=== PATIENT | male | born 1985 | race Two or more races ===

== ENCOUNTER 2019-03-17 10:59 | Inpatient (IN) | payer SELFPAY ==
[2019-03-17 11:23] VITALS: BMI 22.9
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
[2019-03-17] MEDS ORDERED: IBUPROFEN 400 MG TABLET (FP) PO PRN (12:56)
[2019-03-17] MEDS ORDERED: MAGNESIUM CITRATE 300 ML BOTTLE PO PRN (12:56)
[2019-03-17] MEDS ORDERED: hydrOXYzine PAMOATE 25 MG CAPSULE (FP) PO PRN ×2 (12:56)
[2019-03-17] MEDS ORDERED: METHOCARBAMOL 500 MG TABLET PO PRN (12:56)
[2019-03-17] MEDS ORDERED: MELATONIN 5 MG TABLETS PO PRN (12:56)
[2019-03-17] MEDS ORDERED: BISMUTH SUBSALICYLATE 262 MG/15 ML BTL PO PRN (12:56)
[2019-03-17] MEDS ORDERED: MENTHOL/PHENOL 1 EACH UD MM PRN (12:56)
[2019-03-17] MEDS ORDERED: ACETAMINOPHEN 325 MG TABLET (FP) PO PRN ×2 (12:56)
[2019-03-17] MEDS ORDERED: cloNIDine HCL 0.1 MG TABLET PO PRN (12:56)
[2019-03-17] MEDS ORDERED: MAGNESIUM HYDROX 2400MG/30ML ORAL SUSPENSION 30 ML CUP PO PRN (12:56)
[2019-03-17] MEDS ORDERED: MAG HYDROX/AL HYDROX/SIMETH 30 ML UNIT-DOSE CUP PO PRN (12:56)
[2019-03-17] MEDS ORDERED: METHADONE HCL 10 MG TABLET (FOR DETOX USE ONLY) PO ONE (14:05)
[2019-03-17 14:15] LABS: HEMOGLOBIN 11.6 GM/dL (11.7-16.9); MCH 33.1 pg (25.7-33.7); MCHC 33.3 g/dl (32.0-35.9); MEAN CELL VOLUME 99.5 fl (80-96); MEAN PLT VOLUME 10.4 fl (7.5-11.1); PLATELET COUNT 101 K/MM3 (134-434); RBC 3.51 M/mm3 (4.00-5.60); RDW 13.2 % (11.9-15.9); WHITE BLOOD COUNT 6.2 K/mm3 (4.0-10.0)
[2019-03-17 14:26] LABS: ALBUMIN 3.8 g/dl (3.4-5.0); BILIRUBIN,TOTAL 1.1 mg/dL (0.2-1); BLOOD UREA NITROGEN 9.6 mg/dL (7-18); CALCIUM 9.2 mg/dL (8.5-10.1); POTASSIUM 4.6 mmol/L (3.5-5.1); TOT PROT 7.1 g/dl (6.4-8.2)
[2019-03-17] MEDS: diazePAM 5 MG TABLET PO PRN (18:40)
[2019-03-17] MEDS: THIAMINE HCL 100 MG TABLET (FP) PO SCH (22:51)
[2019-03-18] MEDS ORDERED: METHADONE HCL 5 MG TABLET (FOR DETOX USE ONLY) ONE (09:05)
[2019-03-18] MEDS ORDERED: METHADONE HCL 10 MG TABLET (FOR DETOX USE ONLY) ONE (09:06)
[2019-03-18] MEDS: NICOTINE 14 MG/24 HOURS TOPICAL PATCH TD SCH (09:52)
[2019-03-18] MEDS: PRENATAL VITAMINS W/ FOLIC ACID TABLET (FP) PO SCH (09:52)
[2019-03-18] MEDS ORDERED: METHADONE (DETOX) 20 MG, METHADONE (DETOX) 5 MG PO ONE (10:00)
--- NOTE | 2019-03-18 10:10 | PN ---
[facility] COWS - Scale Resting Pulse: 0= [place] 80 or Below Sweatin= Chills/Flushing Restless Observation: 1= Difficult to Sit Still Pupil Size: 0= Normal to Room Light Bone or Joint Aches: 1= Mild Discomfort Runny Nose/ Eye Tearin= Runny Nose/Eyes GI Upset > 30mins: 0= None Tremor Observation of Outstretched Hands: 1= Tremor [place], Not Seen Yawning Observation: 1= 1-2x During Session Anxiety or Irritability: 2=Irritable/Anxious Goose Flesh Skin: 0=Smooth Skin COWS Score: 9 BHS Progress Note (SOAP) Subjective: sweats shakes interrupted sleep body aches Objective: 03/18/19 10:13 Vital Signs Temperature 98.1 F 03/18/19 09:48 Pulse Rate 64 03/18/19 09:48 Respiratory Rate 18 03/18/19 09:48 Blood Pressure 124/81 03/18/19 09:48 O2 Sat by Pulse Oximetry (%) Laboratory Tests 03/17/19 03/17/19 13:00 13:00 WBC 6.2 RBC 3.51 L Hgb 11.6 L Hct 35.0 L MCV 99.5 H MCH 33.1 MCHC 33.3 RDW 13.2 Plt Count 101 L D MPV 10.4 Sodium 140 Potassium 4.6 Chloride 102 Carbon Dioxide 35 H Anion Gap 3 L BUN 9.6 Creatinine 1.0 Est GFR (CKD-EPI)AfAm 111.73 Est GFR (CKD-EPI)NonAf 96.40 Random Glucose 100 Calcium 9.2 Total Bilirubin 1.1 H AST 76 H ALT 100 H Alkaline Phosphatase 63 Total Protein 7.1 Albumin 3.8 aaox3 ambulating no acute distress Assessment: 03/18/19 10:19 withdrawal sx Plan: continue detox increase fluids
[2019-03-18] MEDS ORDERED: FLU VACCINE QUAD 60 MCG/0.5 ML (MDV 19-20) IM ONE (12:00)
[2019-03-18] MEDS: diazePAM 5 MG TABLET PO PRN ×3 (14:22→22:09)
[2019-03-18] MEDS: THIAMINE HCL 100 MG TABLET (FP) PO SCH (22:09)
[2019-03-19] MEDS: diazePAM 5 MG TABLET PO PRN (05:37)
[2019-03-19 07:19] VITALS: TEMP 97.7
[2019-03-19 09:42] VITALS: BP 137/85; PULSE 80
[2019-03-19] MEDS ORDERED: METHADONE HCL 10 MG TABLET (FOR DETOX USE ONLY) PO ONE (10:00)
[2019-03-19] MEDS: NICOTINE 14 MG/24 HOURS TOPICAL PATCH TD SCH (10:27)
[2019-03-19] MEDS: PRENATAL VITAMINS W/ FOLIC ACID TABLET (FP) PO SCH (10:28)
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
--- NOTE | 2019-03-19 11:17 | DS ---
[facility] Detox Discharge Summary Admission Date: 03/17/19 - History Present History: Alcohol Dependence, Cannabis Dependence, Opioid Dependence, Sedative Dependence - Physical Exam Results Vital Signs: Vital Signs Temperature 97.7 F 03/19/19 09:41 Pulse Rate 80 03/19/19 09:41 Respiratory Rate 18 03/19/19 09:41 Blood Pressure 137/85 03/19/19 09:41 O2 Sat by Pulse Oximetry (%) Pertinent Admission Physical Exam Findings: Vital Signs Temperature 97.7 F 03/19/19 09:41 Pulse Rate 80 03/19/19 09:41 Respiratory Rate 18 03/19/19 09:41 Blood Pressure 137/85 03/19/19 09:41 O2 Sat by Pulse Oximetry (%) Laboratory Tests 03/17/19 03/17/19 03/17/19 13:00 13:00 13:00 WBC 6.2 RBC 3.51 L Hgb 11.6 L Hct 35.0 L MCV 99.5 H MCH 33.1 MCHC 33.3 RDW 13.2 Plt Count 101 L D MPV 10.4 Sodium 140 Potassium 4.6 Chloride 102 Carbon Dioxide 35 H Anion Gap 3 L BUN 9.6 Creatinine 1.0 Est GFR (CKD-EPI)AfAm 111.73 Est GFR (CKD-EPI)NonAf 96.40 Random Glucose 100 Calcium 9.2 Total Bilirubin 1.1 H AST 76 H ALT 100 H Alkaline Phosphatase 63 Total Protein 7.1 Albumin 3.8 RPR Titer Nonreactive pt chose to sign out AMA. - Treatment Patient has Accepted a Rehab Referral to: pt delined all referral - Diagnosis (1) Cannabis dependence Current Visit: Yes Status: Chronic (2) Depression Current Visit: Yes Status: Chronic Qualifiers: Depression Type: unspecified Qualified Code(s): F32.9 - Major depressive disorder, single episode, unspecified (3) Nicotine dependence Current Visit: Yes Status: Chronic Qualifiers: Nicotine product type: cigarettes Substance use status: uncomplicated Qualified Code(s): F17.210 - Nicotine dependence, cigarettes, uncomplicated (4) Opioid dependence Current Visit: Yes Status: Chronic Qualifiers: Substance use status: uncomplicated Qualified Code(s): F11.20 - Opioid dependence, uncomplicated (5) AIDS Current Visit: No Status: Acute (6) Alcohol dependence Current Visit: Yes Status: Chronic Qualifiers: Substance use status: uncomplicated Qualified Code(s): F10.20 - Alcohol dependence, uncomplicated (7) Anxiety Current Visit: No Status: Acute (8) Benzodiazepine dependence Current Visit: No Status: Acute (9) Cocaine dependence Current Visit: No Status: Acute Qualifiers: Substance use status: uncomplicated Qualified Code(s): F14.20 - Cocaine dependence, uncomplicated (10) Drug-induced mood disorder Current Visit: No Status: Acute (11) Hepatitis C Current Visit: No Status: Chronic Qualifiers: Viral hepatitis chronicity: unspecified Hepatic coma status: without hepatic coma Qualified Code(s): B19.20 - Unspecified viral hepatitis C without hepatic coma - AMA Did Patient Leave Against Medical Advice: Yes
[2019-03-20] MEDS ORDERED: METHADONE (DETOX) 10 MG, METHADONE (DETOX) 5 MG PO ONE (10:00)
[2019-03-21] MEDS ORDERED: METHADONE HCL 10 MG TABLET (FOR DETOX USE ONLY) PO ONE (10:00)
[2019-03-22] MEDS ORDERED: METHADONE HCL 5 MG TABLET (FOR DETOX USE ONLY) PO ONE (06:00)
== END 2019-03-19 10:39 | disposition left against medical advice (07) | DRG 770 ==
LOC: YASAS 10:59 → Y6N 13:57
PROVIDERS: ADMIT Allergy & Immunology; ATTEND Allergy & Immunology
PROC: HZ2ZZZZ Detoxification Services for Substance Abuse Treatment (ICD-10-PCS; principal; 2019-03-17)
DX: F11.23 Opioid dependence with withdrawal (principal); F10.230 Alcohol dependence with withdrawal, uncomplicated; F13.230 Sedative, hypnotic or anxiolytic dependence with withdrawal, uncomplicated; F14.20 Cocaine dependence, uncomplicated; F12.20 Cannabis dependence, uncomplicated; F17.210 Nicotine dependence, cigarettes, uncomplicated; F32.9 Major depressive disorder, single episode, unspecified; F41.9 Anxiety disorder, unspecified; F19.24 Other psychoactive substance dependence with psychoactive substance-induced mood disorder; B20 Human immunodeficiency virus [HIV] disease; B19.20 Unspecified viral hepatitis C without hepatic coma; D64.9 Anemia, unspecified; Z91.5 Personal history of self-harm
CPT/HCPCS: 36415; 80053; 85027; 86593

== ENCOUNTER 2019-05-21 13:20 | Inpatient (IN) | payer OTHER ==
--- NOTE | 2019-05-21 14:25 | BHS.RME ---
Substance Use & Tx History - Substance Use History Alcohol Substance amount: 1 pint Rum, 1.5 x 6 pack of beer 12 oz Frequency of use: Daily Substance route: Oral Date of Last Use: 05/20/19 Opiates (Heroin) Substance amount: 2-3 bags Substance route: Injection (ex: intravenous or skin popping) Date of Last Use: 05/20/19 Cocaine (Powder) Substance amount: 4 bags Frequency of use: Daily Substance route: Injection (ex: intravenous or skin popping) Date of Last Use: 05/20/19 Benzodiazepines Substance amount: Xanax or Klonopin: 1-2 pills Frequency of use: Less than 3 times per week Date of Last Use: 05/19/19 Cannabis Substance amount: 1 joint Frequency of use: Less than 3 times per week Substance route: Smoking Date of Last Use: 05/20/19 Physical/Psych/Mental Status - Behavior General Behavior: Decreased activity Eye Contact: Normal - Cooperativeness Cooperativeness: Cooperative - Thinking Thought Processes: Loosened Thought content: Future oriented - Physical Health Problems Is patient presently having any pain?: Yes (headache) Does patient presently have any injuries (include location): No Does patient currently have a fever: No COWS - Scale Resting Pulse: 0= [place] 80 or Below Sweatin= No chills or Flushing Restless Observation: 0= Sits Still Pupil Size: 1= Pupils >than Normal Bone or Joint Aches: 0= None Runny Nose/ Eye Tearin= Nasal Congestion GI Upset > 30mins: 1= Stomach Cramp Tremor Observation: 2= Slight Tremor Visible Yawning Observation: 0= None Anxiety or Irritability: 1=Feels Anxious/Irritable Goose Flesh Skin: 0=Smooth Skin COWS Score: 6 CIWA Nausea/Vomitin-Mild Nausea/No Vomiting Muscle Tremors: 4-Moderate,w/Arms Extend Anxiety: 1-Mildly Anxious Agitation: 1-Slight > Activity Paroxysmal Sweats: No Perspiration Orientation: 2-Disoriented Date<2 days Tacttile Disturbances: 0-None Auditory Disturbances: 1-Very Mild Visual Disturbances: 1-Very Mild Sensitivity Headache: 1-Very Mild CIWA-Ar Total Score: 12
[2019-05-21 15:52] VITALS: BMI 23.3
[2019-05-21] MEDS ORDERED: FLU VACCINE QUAD 60 MCG/0.5 ML (MDV 19-20) IM ONE (16:17)
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
[2019-05-21] MEDS ORDERED: IBUPROFEN 400 MG TABLET (FP) PO PRN (18:44)
[2019-05-21] MEDS ORDERED: NICOTINE POLACRILEX 2 MG GUM BUC PRN (18:44)
[2019-05-21] MEDS ORDERED: MAGNESIUM HYDROX 2400MG/30ML ORAL SUSPENSION 30 ML CUP PO PRN (18:44)
[2019-05-21] MEDS ORDERED: METHOCARBAMOL 500 MG TABLET PO PRN (18:44)
[2019-05-21] MEDS ORDERED: MAG HYDROX/AL HYDROX/SIMETH 30 ML UNIT-DOSE CUP PO PRN (18:44)
[2019-05-21] MEDS ORDERED: chlordiazePOXIDE HCL 25 MG CAPSULE PO PRN (18:44)
[2019-05-21] MEDS ORDERED: MELATONIN 5 MG TABLETS PO PRN (18:44)
[2019-05-21] MEDS ORDERED: MAGNESIUM CITRATE 300 ML BOTTLE PO PRN (18:44)
[2019-05-21] MEDS ORDERED: MENTHOL/PHENOL 1 EACH UD MM PRN (18:44)
[2019-05-21] MEDS ORDERED: hydrOXYzine PAMOATE 25 MG CAPSULE (FP) PO PRN (18:44)
[2019-05-21] MEDS ORDERED: BISMUTH SUBSALICYLATE 524 MG/30 ML UD PO PRN (18:44)
[2019-05-21] MEDS ORDERED: ACETAMINOPHEN 325 MG TABLET (FP) PO PRN ×2 (18:44)
[2019-05-21] MEDS: chlordiazePOXIDE HCL 25 MG CAPSULE PO SCH (23:21)
[2019-05-21] MEDS: THIAMINE HCL 100 MG TABLET (FP) PO SCH (23:21)
[2019-05-22] MEDS: chlordiazePOXIDE HCL 25 MG CAPSULE PO SCH ×2 (06:23→10:49)
[2019-05-22 09:35] LABS: HEMATOCRIT 35.3 % (35.4-49); HEMOGLOBIN 11.6 GM/dL (11.7-16.9); MCH 30.9 pg (25.7-33.7); MCHC 32.8 g/dl (32.0-35.9); MEAN CELL VOLUME 94.1 fl (80-96); MEAN PLT VOLUME 10.2 fl (7.5-11.1); PLATELET COUNT 105 K/MM3 (134-434); RBC 3.75 M/mm3 (4.00-5.60); RDW 13.2 % (11.9-15.9); WHITE BLOOD COUNT 2.9 K/mm3 (4.0-10.0)
[2019-05-22 09:50] LABS: ALBUMIN 3.3 g/dl (3.4-5.0); BILIRUBIN,TOTAL 0.4 mg/dL (0.2-1); BLOOD UREA NITROGEN 13.7 mg/dL (7-18); CALCIUM 8.6 mg/dL (8.5-10.1); CREATININE 0.8 mg/dL (0.55-1.3); POTASSIUM 4.2 mmol/L (3.5-5.1); TOT PROT 6.7 g/dl (6.4-8.2)
--- NOTE | 2019-05-22 10:36 | EKG ---
Test Reason : Blood Pressure : / mmHG Vent. Rate : 064 BPM Atrial Rate : 064 BPM P-R Int : 150 ms QRS Dur : 084 ms QT Int : 454 ms P-R-T Axes : 056 -19 017 degrees QTc Int : 468 ms POOR DATA QUALITY, INTERPRETATION MAY BE ADVERSELY AFFECTED NORMAL SINUS RHYTHM NORMAL ECG NO PREVIOUS ECGS AVAILABLE Confirmed by KY TORRES MD ([id number]) on 05/22/2019 10:35:50 AM Referred By: Confirmed By:KY TORRES MD
[2019-05-22] MEDS: PRENATAL VITAMINS W/ FOLIC ACID TABLET (FP) PO SCH (10:49)
[2019-05-22] MEDS: NICOTINE 14 MG/24 HOURS TOPICAL PATCH TD SCH (10:50)
--- NOTE | 2019-05-22 10:51 | CONSULT ---
[facility] Psychiatric Consult - Data Date of interview: 05/22/19 Admission source: [facility] Identifying data: Revisit to [facility] and admission to [address] [place] [address] for this 34 y/o AA male self-referred for detoxification treatment. MAUREEN issues : heroin, cannabis, benzodiazepine (xanax), cocaine, alcohol, nicotine. Patient is single , no dependents, homeless, unemployed and deprived of any source of income. Substance Abuse History: Discussed with patient. Details in current [facility] report as follows : Smoking history: Current every day smoker. Have you smoked in the past 12 months: Yes. Aproximately how many cigarettes per day: 10. Cigars Per Day: 0. Hx Chewing Tobacco Use: No. Initiated information on smoking cessation : Yes. 'Breaking Loose' booklet given: 05/21/19. - Substance & Tx. History. Hx Alcohol Use: Yes. Hx Substance Use: Yes. Substance Use Type: Alcohol, Cocaine, Heroin, Marijuana, Prescribed. Hx Substance Use Treatment: Yes ([facility]) . - Substances abused. Alcohol. Frequency: 3-6 times per week. Amount used: 1 pint of rum and 10 beers. Age of first use: 11. Date of last use: . Benzodiazepine (Klonopin). Substance route: Oral. Frequency: 1-2 times per week. Amount used: 2 pills. Age of first use: 13. Date of last use : 05/19/19. Alprazolam (Xanax). Substance route: Oral. Frequency: 1-2 times per week. Amount used: 3 pills. Age of first use: 13. Date of last use : 05/19/19. Heroin. Substance route: Injection. Frequency: Daily. Amount used: $30. Age of first use: 17. Date of last use: 05/20/19. Cocaine. Substance route: Injection. Frequency: Daily. Amount used: $30. Age of first use: 17. Date of last use: 05/20/19. Marijuana/Hashish. Substance route: Oral. Frequency: 3-6 times per week. Amount used: 1 joint. Age of first use: 11. Date of last use: 05/21/19 Medical History: Medical profile is remarkable for HIV infection since 2009, hepatitis C (treated), anemia, chronic lumbar pain and history of withdrawal- related seizures. Psychiatric History: Patient denies history of psychiatric hospitalizations, OPD care or suicide attempts. Mr Hillman is currently on methadone maintenance ( 70 mg/day) at the [facility] program in the [place]. Additional Comment: Urine drug screen results: THC-Marijuana, CHANTELL-Cocaine, FEN- Fentanyl, MOP-Opiates, BUP-Suboxone. Noted. Mental Status Exam - Mental Status Exam Alert and Oriented to: Time, Place, Person Cognitive Function: Good Patient Appearance: Unkempt, Disheveled Mood: Withdrawn, Irritable Affect: Constricted Patient Behavior: Passive, Fatigued, Uncooperative Speech Pattern: Clear (non spontaneous, coherent ) Voice Loudness: Normal Thought Process: Goal Oriented Thought Disorder: Not Present Hallucinations: Denies Suicidal Ideation: Denies Homicidal Ideation: Denies Insight/Judgement: Poor Sleep: Well Appetite: Good Gait/Station: Normal Psychiatric Findings - Problem List (Avinger 1, 2,3) (1) Alcohol dependence with withdrawal, uncomplicated Current Visit: Yes Status: Acute (2) Opioid dependence on agonist therapy Current Visit: Yes Status: Chronic (3) Cannabis dependence Current Visit: Yes Status: Chronic (4) Cocaine dependence Current Visit: Yes Status: Chronic Qualifiers: Substance use status: uncomplicated Qualified Code(s): F14.20 - Cocaine dependence, uncomplicated (5) Benzodiazepine dependence Current Visit: Yes Status: Chronic (6) Nicotine dependence Current Visit: Yes Status: Chronic Qualifiers: Nicotine product type: cigarettes Substance use status: uncomplicated Qualified Code(s): F17.210 - Nicotine dependence, cigarettes, uncomplicated (7) Drug-induced mood disorder Current Visit: Yes Status: Chronic - Initial Treatment Plan Initial Treatment Plan: Psychoeducation. Sleep hygiene. Detoxification. Support. AA/NA meetings. Observation.
[2019-05-22] MEDS ORDERED: LORazepam 2 MG TABLET PO SCH (11:00)
[2019-05-22] MEDS ORDERED: LORazepam 1 MG TABLET PO PRN (11:04)
--- NOTE | 2019-05-22 11:10 | PN ---
[facility] CIWA - CIWA Score Nausea/Vomitin-No Nausea/No Vomiting Muscle Tremors: 2 Anxiety: 3 Agitation: 1-Slight > Activity Paroxysmal Sweats: 3 Orientation: 0-Oriented Tacttile Disturbances: 0-None Auditory Disturbances: 0-None Visual Disturbances: 0-None Headache: 2-Mild CIWA-Ar Total Score: 11 S Progress Note (SOAP) Subjective: c/o sweats, anxiety, headache, and shakes. Objective: 05/22/19 11:00 Vital Signs 05/22/19 05/22/19 05/22/19 03:30 07:45 09:18 Temperature 98.7 F 98.3 F Pulse Rate 60 70 Respiratory 18 16 20 Rate Blood Pressure 119/61 123/74 Laboratory Last Values WBC 2.9 K/mm3 (4.0-10.0) L 05/22/19 07:00 RBC 3.75 M/mm3 (4.00-5.60) L 05/22/19 07:00 Hgb 11.6 GM/dL (11.7-16.9) L 05/22/19 07:00 Hct 35.3 % (35.4-49) L 05/22/19 07:00 MCV 94.1 fl (80-96) 05/22/19 07:00 MCH 30.9 pg (25.7-33.7) 05/22/19 07:00 MCHC 32.8 g/dl (32.0-35.9) 05/22/19 07:00 RDW 13.2 % (11.9-15.9) 05/22/19 07:00 Plt Count 105 K/MM3 (134-434) L 05/22/19 07:00 MPV 10.2 fl (7.5-11.1) 05/22/19 07:00 Sodium 141 mmol/L (136-145) 05/22/19 07:00 Potassium 4.2 mmol/L (3.5-5.1) 05/22/19 07:00 Chloride 108 mmol/L (98-107) H 05/22/19 07:00 Carbon Dioxide 32 mmol/L (21-32) 05/22/19 07:00 Anion Gap 2 MMOL/L (8-16) L 05/22/19 07:00 BUN 13.7 mg/dL (7-18) 05/22/19 07:00 Creatinine 0.8 mg/dL (0.55-1.3) 05/22/19 07:00 Est GFR (CKD-EPI)AfAm 133.20 05/22/19 07:00 Est GFR (CKD-EPI)NonAf 114.93 05/22/19 07:00 Random Glucose 71 mg/dL (74-106) L 05/22/19 07:00 Calcium 8.6 mg/dL (8.5-10.1) 05/22/19 07:00 Total Bilirubin 0.4 mg/dL (0.2-1) 05/22/19 07:00 AST 149 U/L (15-37) H 05/22/19 07:00 ALT 147 U/L (13-61) H 05/22/19 07:00 Alkaline Phosphatase 80 U/L (45-117) 05/22/19 07:00 Total Protein 6.7 g/dl (6.4-8.2) 05/22/19 07:00 Albumin 3.3 g/dl (3.4-5.0) L 05/22/19 07:00 RPR Titer Nonreactive (NONREACTIVE) 05/22/19 07:00 Labs noted with elevated AST/ALT 05/22/19 11:00 Assessment: 05/22/19 11:00 AOX3, in no acute respiratory distress. Full ROM, ambulating in the unit. Withdrawal symptoms. Elevated liver enzymes. 05/22/19 11:01 Plan: Change librium protocol to ativan protocol. Increase fluids.
[2019-05-22] MEDS ORDERED: METHADONE HCL 10 MG TABLET PO SCH (11:45)
[2019-05-22] MEDS ORDERED: FLU VACCINE QUAD 60 MCG/0.5 ML (MDV 19-20) IM ONE (12:00)
[2019-05-22] MEDS ORDERED: METHADONE 40 MG, METHADONE 30 MG PO ONE (12:00)
[2019-05-22] MEDS ORDERED: METHADONE HCL 10 MG TABLET ONE (12:11)
[2019-05-22] MEDS ORDERED: METHADONE HCL 40 MG DISPERSABLE TABLET ONE (12:12)
[2019-05-22] MEDS ORDERED: LORazepam 1 MG TABLET PO SCH (12:25)
[2019-05-22] MEDS: LORazepam 1 MG TABLET PO SCH ×3 (12:38→22:03)
[2019-05-22] MEDS: THIAMINE HCL 100 MG TABLET (FP) PO SCH (22:04)
[2019-05-23] MEDS ORDERED: METHADONE HCL 10 MG TABLET ONE (04:19)
[2019-05-23] MEDS ORDERED: METHADONE HCL 40 MG DISPERSABLE TABLET ONE (04:20)
[2019-05-23] MEDS ORDERED: chlordiazePOXIDE HCL 25 MG CAPSULE PO SCH (05:00)
[2019-05-23] MEDS ORDERED: LORazepam 1 MG TABLET PO SCH (05:00)
[2019-05-23] MEDS ORDERED: METHADONE 40 MG, METHADONE 30 MG PO SCH (06:00)
[2019-05-23] MEDS: NICOTINE 14 MG/24 HOURS TOPICAL PATCH TD SCH (10:41)
[2019-05-23] MEDS: PRENATAL VITAMINS W/ FOLIC ACID TABLET (FP) PO SCH (10:42)
[2019-05-23] MEDS: LORazepam 0.5 MG TABLET PO SCH ×2 (10:42→17:20)
--- NOTE | 2019-05-23 13:26 | PN ---
[facility] CIWA - CIWA Score Nausea/Vomitin-No Nausea/No Vomiting Muscle Tremors: 2 Anxiety: 2 Agitation: 0-Normal Activity Paroxysmal Sweats: 2 Orientation: 0-Oriented Tacttile Disturbances: 0-None Auditory Disturbances: 0-None Visual Disturbances: 2-Mild Sensitivity Headache: 0-None Present CIWA-Ar Total Score: 8 S Progress Note (SOAP) Subjective: 34 years old male admitted on 05/21/19 for alcohol and benzo withdrawal sx management treating with ativan detox regiment feeling ok today encourage to attend behavior and psychosocial therapies groups and meetings while in detox Objective: 05/23/19 13:28 Vital Signs Temperature 97.6 F 05/23/19 12:39 Pulse Rate 75 05/23/19 12:39 Respiratory Rate 18 05/23/19 12:39 Blood Pressure 127/76 05/23/19 12:39 O2 Sat by Pulse Oximetry (%) Laboratory Last Values WBC 2.9 K/mm3 (4.0-10.0) L 05/22/19 07:00 RBC 3.75 M/mm3 (4.00-5.60) L 05/22/19 07:00 Hgb 11.6 GM/dL (11.7-16.9) L 05/22/19 07:00 Hct 35.3 % (35.4-49) L 05/22/19 07:00 MCV 94.1 fl (80-96) 05/22/19 07:00 MCH 30.9 pg (25.7-33.7) 05/22/19 07:00 MCHC 32.8 g/dl (32.0-35.9) 05/22/19 07:00 RDW 13.2 % (11.9-15.9) 05/22/19 07:00 Plt Count 105 K/MM3 (134-434) L 05/22/19 07:00 MPV 10.2 fl (7.5-11.1) 05/22/19 07:00 Sodium 141 mmol/L (136-145) 05/22/19 07:00 Potassium 4.2 mmol/L (3.5-5.1) 05/22/19 07:00 Chloride 108 mmol/L (98-107) H 05/22/19 07:00 Carbon Dioxide 32 mmol/L (21-32) 05/22/19 07:00 Anion Gap 2 MMOL/L (8-16) L 05/22/19 07:00 BUN 13.7 mg/dL (7-18) 05/22/19 07:00 Creatinine 0.8 mg/dL (0.55-1.3) 05/22/19 07:00 Est GFR (CKD-EPI)AfAm 133.20 05/22/19 07:00 Est GFR (CKD-EPI)NonAf 114.93 05/22/19 07:00 Random Glucose 71 mg/dL (74-106) L 05/22/19 07:00 Calcium 8.6 mg/dL (8.5-10.1) 05/22/19 07:00 Total Bilirubin 0.4 mg/dL (0.2-1) 05/22/19 07:00 AST 149 U/L (15-37) H 05/22/19 07:00 ALT 147 U/L (13-61) H 05/22/19 07:00 Alkaline Phosphatase 80 U/L (45-117) 05/22/19 07:00 Total Protein 6.7 g/dl (6.4-8.2) 05/22/19 07:00 Albumin 3.3 g/dl (3.4-5.0) L 05/22/19 07:00 RPR Titer Nonreactive (NONREACTIVE) 05/22/19 07:00 05/23/19 13:30 ast elevation ativan detox regiment repeat ast Assessment: 05/23/19 13:30 alcohol and benzo withdrawal Plan: ativan regiment
[2019-05-23 17:36] VITALS: BP 129/78; PULSE 72; TEMP 99
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
--- NOTE | 2019-05-23 21:47 | DS ---
[facility] Detox Discharge Summary Admission Date: 05/21/19 Discharge Date: 05/23/19 - History Present History: Alcohol Dependence, Cannabis Dependence, Cocaine Dependence, Opioid Dependence, MMTP Pertinent Past History: PMHx:Hepatitis C (Tx'd), HIV +; MAUREEN: Alcohol, Heroin, Cocaine, Marijuana MHHx: Depression - Physical Exam Results Vital Signs: Vital Signs Temperature 99.0 F 05/23/19 17:33 Pulse Rate 72 05/23/19 17:33 Respiratory Rate 18 05/23/19 17:33 Blood Pressure 129/78 05/23/19 17:33 O2 Sat by Pulse Oximetry (%) Pertinent Admission Physical Exam Findings: Patient admitted w/ withdrawal symptoms. Laboratory Last Values WBC 2.9 K/mm3 (4.0-10.0) L 05/22/19 07:00 RBC 3.75 M/mm3 (4.00-5.60) L 05/22/19 07:00 Hgb 11.6 GM/dL (11.7-16.9) L 05/22/19 07:00 Hct 35.3 % (35.4-49) L 05/22/19 07:00 MCV 94.1 fl (80-96) 05/22/19 07:00 MCH 30.9 pg (25.7-33.7) 05/22/19 07:00 MCHC 32.8 g/dl (32.0-35.9) 05/22/19 07:00 RDW 13.2 % (11.9-15.9) 05/22/19 07:00 Plt Count 105 K/MM3 (134-434) L 05/22/19 07:00 MPV 10.2 fl (7.5-11.1) 05/22/19 07:00 Sodium 141 mmol/L (136-145) 05/22/19 07:00 Potassium 4.2 mmol/L (3.5-5.1) 05/22/19 07:00 Chloride 108 mmol/L (98-107) H 05/22/19 07:00 Carbon Dioxide 32 mmol/L (21-32) 05/22/19 07:00 Anion Gap 2 MMOL/L (8-16) L 05/22/19 07:00 BUN 13.7 mg/dL (7-18) 05/22/19 07:00 Creatinine 0.8 mg/dL (0.55-1.3) 05/22/19 07:00 Est GFR (CKD-EPI)AfAm 133.20 05/22/19 07:00 Est GFR (CKD-EPI)NonAf 114.93 05/22/19 07:00 Random Glucose 71 mg/dL (74-106) L 05/22/19 07:00 Calcium 8.6 mg/dL (8.5-10.1) 05/22/19 07:00 Total Bilirubin 0.4 mg/dL (0.2-1) 05/22/19 07:00 AST 149 U/L (15-37) H 05/22/19 07:00 ALT 147 U/L (13-61) H 05/22/19 07:00 Alkaline Phosphatase 80 U/L (45-117) 05/22/19 07:00 Total Protein 6.7 g/dl (6.4-8.2) 05/22/19 07:00 Albumin 3.3 g/dl (3.4-5.0) L 05/22/19 07:00 RPR Titer Nonreactive (NONREACTIVE) 05/22/19 07:00 Abnormal labs reviewed during stay. - Treatment Hospital Course: Detox Protocol Followed, Discharged Condition Good (Patient was alert and oriented at discharge. Verbally combative. Breaking furniture. Refusing to speak with this provider or wait for discharge papers. Encouraged f/ u w/ HCP.) - Medication Discharge Medications: Ambulatory Orders NK [No Known Home Medication] 05/21/19 - Diagnosis (1) Alcohol dependence with withdrawal, uncomplicated Status: Acute (2) Cannabis dependence Status: Chronic (3) Cocaine dependence Status: Chronic Qualifiers: Substance use status: uncomplicated Qualified Code(s): F14.20 - Cocaine dependence, uncomplicated (4) HIV (human immunodeficiency virus infection) Status: Chronic Qualifiers: HIV symptom status: unspecified Qualified Code(s): B20 - Human immunodeficiency virus [HIV] disease (5) Opioid dependence Status: Chronic Qualifiers: Substance use status: uncomplicated Qualified Code(s): F11.20 - Opioid dependence, uncomplicated (6) Opioid dependence on agonist therapy Status: Chronic - AMA Did Patient Leave Against Medical Advice: Yes (Patient left AMA, refusing copies of labs. )
[2019-05-24] MEDS ORDERED: chlordiazePOXIDE HCL 10 MG CAPSULE PO PRN
[2019-05-24] MEDS ORDERED: LORazepam 0.5 MG TABLET PO SCH (05:00)
[2019-05-24] MEDS ORDERED: chlordiazePOXIDE HCL 10 MG CAPSULE PO SCH (05:00)
[2019-05-25] MEDS ORDERED: LORazepam 0.5 MG TABLET PO PRN
[2019-05-25] MEDS ORDERED: chlordiazePOXIDE HCL 10 MG CAPSULE PO SCH (05:00)
[2019-05-25] MEDS ORDERED: LORazepam 0.5 MG TABLET PO ONE (05:00)
[2019-05-26] MEDS ORDERED: chlordiazePOXIDE HCL 10 MG CAPSULE PO ONE (05:00)
== END 2019-05-23 20:47 | disposition left against medical advice (07) | DRG 770 ==
LOC: YASAS 13:20 → Y3N 16:35
PROVIDERS: ADMIT Allergy & Immunology; ATTEND Allergy & Immunology
PROC: HZ2ZZZZ Detoxification Services for Substance Abuse Treatment (ICD-10-PCS; principal; 2019-05-21)
DX: F10.230 Alcohol dependence with withdrawal, uncomplicated (principal); F13.230 Sedative, hypnotic or anxiolytic dependence with withdrawal, uncomplicated; F11.20 Opioid dependence, uncomplicated; F14.20 Cocaine dependence, uncomplicated; F12.20 Cannabis dependence, uncomplicated; F17.210 Nicotine dependence, cigarettes, uncomplicated; F19.24 Other psychoactive substance dependence with psychoactive substance-induced mood disorder; F32.9 Major depressive disorder, single episode, unspecified; Z21 Asymptomatic human immunodeficiency virus [HIV] infection status; D64.9 Anemia, unspecified; B18.2 Chronic viral hepatitis C; M54.5 Low back pain; G89.29 Other chronic pain; B00.1 Herpesviral vesicular dermatitis; Z86.69 Personal history of other diseases of the nervous system and sense organs
CPT/HCPCS: 36415; 80053; 85027; 86593; 93005; 93010; G0008; Q2036

== ENCOUNTER 2019-12-16 17:51 | Inpatient (IN) | payer OTHER ==
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
[2019-12-16 18:18] VITALS: BMI 23.3
[2019-12-16] MEDS ORDERED: BISMUTH SUBSALICYLATE 524 MG/30 ML UD PO PRN (18:22)
[2019-12-16] MEDS ORDERED: MAG HYDROX/AL HYDROX/SIMETH 30 ML UNIT-DOSE CUP PO PRN (18:22)
[2019-12-16] MEDS ORDERED: ONDANSETRON *ODT* 4 MG TABLET SL PRN (18:22)
[2019-12-16] MEDS ORDERED: ACETAMINOPHEN 325 MG TABLET (FP) PO PRN ×2 (18:22)
[2019-12-16] MEDS ORDERED: hydrOXYzine PAMOATE 25 MG CAPSULE (FP) PO PRN (18:22)
[2019-12-16] MEDS ORDERED: METHOCARBAMOL 500 MG TABLET PO PRN (18:22)
[2019-12-16] MEDS ORDERED: IBUPROFEN 400 MG TABLET (FP) PO PRN (18:22)
[2019-12-16] MEDS ORDERED: MAGNESIUM HYDROX 2400MG/30ML ORAL SUSPENSION 30 ML CUP PO PRN (18:22)
[2019-12-16] MEDS ORDERED: MENTHOL/PHENOL 1 EACH UD MM PRN (18:22)
[2019-12-16] MEDS ORDERED: MAGNESIUM CITRATE 300 ML BOTTLE PO PRN (18:22)
[2019-12-16] MEDS: diazePAM 5 MG TABLET PO PRN (19:37)
--- OUTSIDE RECORDS SUMMARY | 2019-12-16 19:43 | XMS ---
:1985 Author [facility] Support Name Relationship Address Phone UE Unavailable Unavailable Unavailable JEANIE [place] [address] Re-disclosure Warning The records that you are about to access may contain information from federally- assisted alcohol or drug abuse programs. If such information is present, then the following federally mandated warning applies: This information has been disclosed to you from records protected by federal confidentiality rules (42 CFR part 2). The federal rules prohibit you from making any further disclosure of this information unless further disclosure is expressly permitted by the written consent of the person to whom it pertains or as otherwise permitted by 42 CFR part 2. A general authorization for the release of medical or other information is NOT sufficient for this purpose. The Federal rules restrict any use of the information to criminally investigate or prosecute any alcohol or drug abuse patient.The records that you are about to access may contain highly sensitive health information, the redisclosure of which is protected by Article 27-F of the [facility] Public Health law. If you continue you may haveaccess to information: Regarding HIV / AIDS; Provided by facilities licensed or operated by the [facility] Office of Mental Health; or Provided by the [facility] Office for People With Developmental Disabilities. If such information is present, then the following [facility] mandated warning applies: This information has been disclosed to you from confidential records which are protected by state law. State law prohibits you from making any further disclosure of this information without the specific written consent of the person to whom it pertains, or as otherwise permitted by law. Any unauthorized further disclosure in violation of state law may result in a fine or shelter sentence or both. A general authorization for the release of medical or other information is NOT sufficient authorization for further disclosure. Insurance Providers Payer name Policy type Policy ID Covered Covered republican's Policy P marcos / Coverage republican ID relationship to [employer] Inf ormation type gambino [facility] [id number] [employer] MEDICAID [id number] [facility] [id number] [employer] SELF PAY INSURANCE
[2019-12-16] MEDS: diazePAM 5 MG TABLET PO SCH (23:48)
[2019-12-16] MEDS: MELATONIN 5 MG TABLETS PO SCH (23:48)
[2019-12-16] MEDS: THIAMINE HCL 100 MG TABLET (FP) PO SCH (23:49)
[2019-12-17] MEDS: diazePAM 5 MG TABLET PO SCH ×4 (07:14→22:23)
[2019-12-17] MEDS ORDERED: METHADONE HCL 10 MG TABLET PO ONE (08:30)
[2019-12-17] MEDS ORDERED: METHADONE 80 MG, METHADONE 30 MG PO ONE (09:15)
[2019-12-17] MEDS ORDERED: METHADONE HCL 10 MG TABLET ONE (09:57)
[2019-12-17] MEDS ORDERED: METHADONE HCL 40 MG DISPERSABLE TABLET ONE (09:58)
--- NOTE | 2019-12-17 10:23 | PN ---
S CIWA - CIWA Score Nausea/Vomitin-Mild Nausea/No Vomiting Muscle Tremors: 2 Anxiety: 2 Agitation: 2 Paroxysmal Sweats: 1-Minimal Palms Moist Orientation: 0-Oriented Tacttile Disturbances: 1-Very Mild Itch/Numbness Auditory Disturbances: 0-None Visual Disturbances: 0-None Headache: 2-Mild CIWA-Ar Total Score: 11 S Progress Note (SOAP) Subjective: alert,irritable,anxious,interrupted sleep,tremor,aching pain body and back Objective: 12/17/19 16:41 Vital Signs Temperature 98.4 F 12/17/19 13:00 Pulse Rate 60 12/17/19 13:00 Respiratory Rate 19 12/17/19 13:00 Blood Pressure 142/90 12/17/19 13:00 O2 Sat by Pulse Oximetry (%) 97 12/17/19 13:00 Laboratory Last Values WBC 5.3 K/mm3 (4.0-10.0) 12/17/19 08:00 RBC 3.99 M/mm3 (4.00-5.60) L 12/17/19 08:00 Hgb 10.9 GM/dL (11.7-16.9) L 12/17/19 08:00 Hct 34.9 % (35.4-49) L 12/17/19 08:00 MCV 87.5 fl (80-96) 12/17/19 08:00 MCH 27.3 pg (25.7-33.7) D 12/17/19 08:00 MCHC 31.3 g/dl (32.0-35.9) L 12/17/19 08:00 RDW 13.7 % (11.9-15.9) 12/17/19 08:00 Plt Count 150 K/MM3 (134-434) D 12/17/19 08:00 MPV 9.7 fl (7.5-11.1) 12/17/19 08:00 Sodium 138 mmol/L (136-145) 12/17/19 08:00 Potassium 4.3 mmol/L (3.5-5.1) 12/17/19 08:00 Chloride 104 mmol/L (98-107) 12/17/19 08:00 Carbon Dioxide 31 mmol/L (21-32) 12/17/19 08:00 Anion Gap 3 MMOL/L (8-16) L 12/17/19 08:00 BUN 10.6 mg/dL (7-18) 12/17/19 08:00 Creatinine 0.7 mg/dL (0.55-1.3) 12/17/19 08:00 Est GFR (CKD-EPI)AfAm 140.71 12/17/19 08:00 Est GFR (CKD-EPI)NonAf 121.41 12/17/19 08:00 Random Glucose 71 mg/dL (74-106) L 12/17/19 08:00 Calcium 8.8 mg/dL (8.5-10.1) 12/17/19 08:00 Total Bilirubin 0.9 mg/dL (0.2-1) 12/17/19 08:00 AST 37 U/L (15-37) 12/17/19 08:00 ALT 39 U/L (13-61) 12/17/19 08:00 Alkaline Phosphatase 118 U/L (45-117) H 12/17/19 08:00 Total Protein 7.8 g/dl (6.4-8.2) 12/17/19 08:00 Albumin 2.7 g/dl (3.4-5.0) L 12/17/19 08:00 Syphilis Serology Non-reactive (NONREACTIVE) 12/17/19 08:00 COVID-19 (LIZABETH) Not detected (Not Detected) 12/16/19 18:50 Assessment: 12/17/19 16:42 withdrawal symptom Plan: continue detox librium regimen,continue methadone 110 mgs/day daily methadone maintenance,encourage oral fluid
[2019-12-17 10:36] LABS: HEMATOCRIT 34.9 % (35.4-49); HEMOGLOBIN 10.9 GM/dL (11.7-16.9); MCH 27.3 pg (25.7-33.7); MCHC 31.3 g/dl (32.0-35.9); MEAN CELL VOLUME 87.5 fl (80-96); MEAN PLT VOLUME 9.7 fl (7.5-11.1); PLATELET COUNT 150 K/MM3 (134-434); RBC 3.99 M/mm3 (4.00-5.60); RDW 13.7 % (11.9-15.9); WHITE BLOOD COUNT 5.3 K/mm3 (4.0-10.0)
[2019-12-17] MEDS: PRENATAL VITAMINS W/ FOLIC ACID TABLET (FP) PO SCH (10:44)
[2019-12-17 10:56] LABS: ALBUMIN 2.7 g/dl (3.4-5.0); BILIRUBIN,TOTAL 0.9 mg/dL (0.2-1); BLOOD UREA NITROGEN 10.6 mg/dL (7-18); CALCIUM 8.8 mg/dL (8.5-10.1); CREATININE 0.7 mg/dL (0.55-1.3); POTASSIUM 4.3 mmol/L (3.5-5.1); TOT PROT 7.8 g/dl (6.4-8.2)
[2019-12-17] MEDS: diazePAM 5 MG TABLET PO PRN (15:06)
[2019-12-17] MEDS: THIAMINE HCL 100 MG TABLET (FP) PO SCH (22:23)
[2019-12-17] MEDS: MELATONIN 5 MG TABLETS PO SCH (22:24)
[2019-12-18] MEDS ORDERED: METHADONE HCL 10 MG TABLET ONE (04:56)
[2019-12-18] MEDS ORDERED: METHADONE HCL 40 MG DISPERSABLE TABLET ONE (04:57)
[2019-12-18] MEDS ORDERED: METHADONE HCL 40 MG DISPERSABLE TABLET PO SCH (06:00)
[2019-12-18] MEDS ORDERED: METHADONE 80 MG, METHADONE 30 MG PO SCH (06:00)
[2019-12-18] MEDS ORDERED: diazePAM 5 MG TABLET PO SCH (06:00)
[2019-12-18] MEDS ORDERED: MASKS NR ONE (09:09)
[2019-12-18 10:08] VITALS: BP 125/73; PULSE 75; TEMP 97.5
[2019-12-18] MEDS: PRENATAL VITAMINS W/ FOLIC ACID TABLET (FP) PO SCH (10:13)
[2019-12-18] MEDS: diazePAM 5 MG TABLET PO PRN (10:14)
--- NOTE | 2019-12-18 11:01 | DS ---
[facility] Detox Discharge Summary Admission Date: 12/16/19 Discharge Date: 12/18/19 - History Present History: Alcohol Dependence, Cocaine Dependence, Opioid Dependence, MMTP Additional Comments: Alert and oriented x 3, in no acute distress. Full ROM, ambulating in the unit without assistance. Skin was to touch with dry lesions. Withdrawal symptoms. Pacing back and forth in the unit, became very agitated. Demanding to leave now. Condition 10 was called, patient was escorted off the unit by security. Pertinent Past History: History of Hep C( treated), HIV, alcohol, heroin, cocaine and nicotine use disorder. - Physical Exam Results Vital Signs: Vital Signs Temperature 97.5 F L 12/18/19 10:07 Pulse Rate 75 12/18/19 10:07 Respiratory Rate 18 12/18/19 10:07 Blood Pressure 125/73 12/18/19 10:07 O2 Sat by Pulse Oximetry (%) 99 12/18/19 10:07 Vital Signs 12/18/19 12/18/19 05:23 10:07 Temperature 97.8 F 97.5 F L Pulse Rate 55 L 75 Respiratory 20 18 Rate Blood Pressure 144/76 125/73 O2 Sat by Pulse 99 99 Oximetry (%) Laboratory Last Values WBC 5.3 K/mm3 (4.0-10.0) 12/17/19 08:00 RBC 3.99 M/mm3 (4.00-5.60) L 12/17/19 08:00 Hgb 10.9 GM/dL (11.7-16.9) L 12/17/19 08:00 Hct 34.9 % (35.4-49) L 12/17/19 08:00 MCV 87.5 fl (80-96) 12/17/19 08:00 MCH 27.3 pg (25.7-33.7) D 12/17/19 08:00 MCHC 31.3 g/dl (32.0-35.9) L 12/17/19 08:00 RDW 13.7 % (11.9-15.9) 12/17/19 08:00 Plt Count 150 K/MM3 (134-434) D 12/17/19 08:00 MPV 9.7 fl (7.5-11.1) 12/17/19 08:00 Sodium 138 mmol/L (136-145) 12/17/19 08:00 Potassium 4.3 mmol/L (3.5-5.1) 12/17/19 08:00 Chloride 104 mmol/L (98-107) 12/17/19 08:00 Carbon Dioxide 31 mmol/L (21-32) 12/17/19 08:00 Anion Gap 3 MMOL/L (8-16) L 12/17/19 08:00 BUN 10.6 mg/dL (7-18) 12/17/19 08:00 Creatinine 0.7 mg/dL (0.55-1.3) 12/17/19 08:00 Est GFR (CKD-EPI)AfAm 140.71 12/17/19 08:00 Est GFR (CKD-EPI)NonAf 121.41 12/17/19 08:00 Random Glucose 71 mg/dL (74-106) L 12/17/19 08:00 Calcium 8.8 mg/dL (8.5-10.1) 12/17/19 08:00 Total Bilirubin 0.9 mg/dL (0.2-1) 12/17/19 08:00 AST 37 U/L (15-37) 12/17/19 08:00 ALT 39 U/L (13-61) 12/17/19 08:00 Alkaline Phosphatase 118 U/L (45-117) H 12/17/19 08:00 Total Protein 7.8 g/dl (6.4-8.2) 12/17/19 08:00 Albumin 2.7 g/dl (3.4-5.0) L 12/17/19 08:00 Syphilis Serology Non-reactive (NONREACTIVE) 12/17/19 08:00 COVID-19 (LIZABETH) Not detected (Not Detected) 12/16/19 18:50 Labs noted. Pertinent Admission Physical Exam Findings: Withdrawal symptoms. - Medication Discharge Medications: Ambulatory Orders NK [No Known Home Medication] 05/21/19 - Diagnosis (1) Cocaine dependence Current Visit: Yes Status: Chronic Qualifiers: Substance use status: uncomplicated Qualified Code(s): F14.20 - Cocaine dependence, uncomplicated (2) Nicotine dependence Current Visit: Yes Status: Chronic Qualifiers: Nicotine product type: cigarettes Substance use status: uncomplicated Qualified Code(s): F17.210 - Nicotine dependence, cigarettes, uncomplicated (3) Opioid dependence on agonist therapy Current Visit: Yes Status: Chronic (4) Alcohol dependence with withdrawal, uncomplicated Current Visit: No Status: Acute (5) HIV (human immunodeficiency virus infection) Current Visit: No Status: Chronic Qualifiers: HIV symptom status: unspecified Qualified Code(s): B20 - Human immunodeficiency virus [HIV] disease (6) Hepatitis C Current Visit: No Status: Chronic Qualifiers: Viral hepatitis chronicity: unspecified Hepatic coma status: without hepatic coma Qualified Code(s): B19.20 - Unspecified viral hepatitis C without hepatic coma - AMA Did Patient Leave Against Medical Advice: Yes CIWA Score - CIWA Score Nausea/Vomitin-No Nausea/No Vomiting Muscle Tremors: 2 Anxiety: 4-Mod. Anxious/Guarded Agitation: 3 Paroxysmal Sweats: 2 Orientation: 0-Oriented Tacttile Disturbances: 0-None Auditory Disturbances: 0-None Visual Disturbances: 0-None Headache: 0-None Present CIWA-Ar Total Score: 11
[2019-12-19] MEDS ORDERED: diazePAM 5 MG TABLET PO SCH (06:00)
[2019-12-20] MEDS ORDERED: diazePAM 5 MG TABLET PO ONE (06:00)
== END 2019-12-18 10:33 | disposition left against medical advice (07) | DRG 770 ==
LOC: YASAS 17:51 → Y6N 18:55
PROVIDERS: ADMIT Allergy & Immunology; ATTEND Allergy & Immunology
PROC: HZ2ZZZZ Detoxification Services for Substance Abuse Treatment (ICD-10-PCS; principal; 2019-12-16)
DX: F10.230 Alcohol dependence with withdrawal, uncomplicated (principal); F11.20 Opioid dependence, uncomplicated; F14.20 Cocaine dependence, uncomplicated; F12.20 Cannabis dependence, uncomplicated; F17.210 Nicotine dependence, cigarettes, uncomplicated; F41.9 Anxiety disorder, unspecified; F39 Unspecified mood [affective] disorder; F32.9 Major depressive disorder, single episode, unspecified; Z21 Asymptomatic human immunodeficiency virus [HIV] infection status; D64.9 Anemia, unspecified; M54.5 Low back pain; M25.512 Pain in left shoulder; G89.29 Other chronic pain; B00.1 Herpesviral vesicular dermatitis; Z86.19 Personal history of other infectious and parasitic diseases
CPT/HCPCS: 36415; 80053; 85027; 86780; U0003

== ENCOUNTER 2020-05-25 14:41 | Inpatient (IN) | payer OTHER ==
[2020-05-25 16:39] VITALS: BMI 26.8
[2020-05-25] MEDS ORDERED: NICOTINE POLACRILEX 2 MG GUM BUC PRN (18:22)
[2020-05-25] MEDS ORDERED: METHADONE HCL 10 MG TABLET (FOR DETOX USE ONLY) PO ONE ×2 (18:22→23:45)
[2020-05-25] MEDS ORDERED: MAG HYDROX/AL HYDROX/SIMETH 30 ML UNIT-DOSE CUP PO PRN (18:22)
[2020-05-25] MEDS ORDERED: METHOCARBAMOL 500 MG TABLET PO PRN (18:22)
[2020-05-25] MEDS ORDERED: BISMUTH SUBSALICYLATE 524 MG/30 ML UD PO PRN (18:22)
[2020-05-25] MEDS ORDERED: cloNIDine HCL 0.1 MG TABLET PO PRN (18:22)
[2020-05-25] MEDS ORDERED: IBUPROFEN 400 MG TABLET (FP) PO PRN (18:22)
[2020-05-25] MEDS ORDERED: P-EPHED 60MG/TRIPROLIDI 2.5MG TABLET PO PRN (18:22)
[2020-05-25] MEDS ORDERED: ONDANSETRON *ODT* 4 MG TABLET SL PRN (18:22)
[2020-05-25] MEDS ORDERED: MENTHOL/PHENOL 1 EACH UD MM PRN (18:22)
[2020-05-25] MEDS ORDERED: guaiFENesin 200 MG/10 ML 10 ML UNIT-DOSE CUPS PO PRN (18:22)
[2020-05-25] MEDS ORDERED: MAGNESIUM HYDROX 2400MG/30ML ORAL SUSPENSION 30 ML CUP PO PRN (18:22)
[2020-05-25] MEDS ORDERED: MAGNESIUM CITRATE 300 ML BOTTLE PO PRN (18:22)
[2020-05-25] MEDS ORDERED: ACETAMINOPHEN 325 MG TABLET (FP) PO PRN (18:22)
[2020-05-26] MEDS: MELATONIN 5 MG TABLETS PO SCH ×2 (00:17→22:48)
[2020-05-26] MEDS: THIAMINE HCL 100 MG TABLET (FP) PO SCH ×2 (00:18→22:48)
[2020-05-26] MEDS: PRENATAL VITAMINS W/ FOLIC ACID TABLET (FP) PO SCH ×2 (00:20→10:24)
[2020-05-26] MEDS: NICOTINE 7 MG/24 HOURS TOPICAL PATCH TD SCH ×2 (00:20→10:24)
[2020-05-26] MEDS ORDERED: METHADONE HCL 10 MG TABLET (FOR DETOX USE ONLY) ONE (09:09)
[2020-05-26] MEDS ORDERED: METHADONE HCL 5 MG TABLET (FOR DETOX USE ONLY) ONE (09:10)
[2020-05-26] MEDS ORDERED: METHADONE (DETOX) 20 MG, METHADONE (DETOX) 5 MG PO ONE (10:00)
[2020-05-26 11:48] LABS: HEMATOCRIT 32.7 % (35.4-49); HEMOGLOBIN 10.9 GM/dL (11.7-16.9); MCH 30.6 pg (25.7-33.7); MCHC 33.3 g/dl (32.0-35.9); MEAN PLT VOLUME 9.9 fl (7.5-11.1); PLATELET COUNT 106 K/MM3 (134-434); RBC 3.55 M/mm3 (4.00-5.60); RDW 14.7 % (11.9-15.9)
[2020-05-26 12:03] LABS: POTASSIUM 4.5 mmol/L (3.5-5.1)
[2020-05-26 12:49] LABS: ALBUMIN 2.8 g/dl (3.4-5.0)
[2020-05-26 12:50] LABS: BLOOD UREA NITROGEN 9.6 mg/dL (7-18); CALCIUM 8.6 mg/dL (8.5-10.1)
[2020-05-26 12:52] LABS: CREATININE 0.9 mg/dL (0.55-1.3)
[2020-05-26 12:53] LABS: BILIRUBIN,TOTAL 0.3 mg/dL (0.2-1); TOT PROT 6.4 g/dl (6.4-8.2)
[2020-05-27] MEDS: hydrOXYzine PAMOATE 25 MG CAPSULE (FP) PO PRN ×2 (05:50→09:41)
[2020-05-27 08:19] VITALS: TEMP 97.7
[2020-05-27] MEDS: PRENATAL VITAMINS W/ FOLIC ACID TABLET (FP) PO SCH (09:40)
[2020-05-27] MEDS: NICOTINE 7 MG/24 HOURS TOPICAL PATCH TD SCH (09:40)
[2020-05-27 09:46] VITALS: BP 118/98; PULSE 96
[2020-05-27] MEDS ORDERED: METHADONE HCL 10 MG TABLET (FOR DETOX USE ONLY) PO ONE (10:00)
[2020-05-28] MEDS ORDERED: METHADONE (DETOX) 10 MG, METHADONE (DETOX) 5 MG PO ONE (10:00)
[2020-05-29] MEDS ORDERED: METHADONE HCL 10 MG TABLET (FOR DETOX USE ONLY) PO ONE (10:00)
[2020-05-30] MEDS ORDERED: METHADONE HCL 5 MG TABLET (FOR DETOX USE ONLY) PO ONE (06:00)
== END 2020-05-27 10:40 | disposition left against medical advice (07) | DRG 770 ==
LOC: YASAS 14:41 → Y3N 19:31
PROVIDERS: ADMIT Allergy & Immunology; ATTEND Allergy & Immunology
PROC: HZ2ZZZZ Detoxification Services for Substance Abuse Treatment (ICD-10-PCS; principal; 2020-05-25)
DX: F11.23 Opioid dependence with withdrawal (principal); F10.20 Alcohol dependence, uncomplicated; F14.20 Cocaine dependence, uncomplicated; F17.210 Nicotine dependence, cigarettes, uncomplicated; F32.9 Major depressive disorder, single episode, unspecified; B20 Human immunodeficiency virus [HIV] disease; B18.2 Chronic viral hepatitis C; M54.5 Low back pain; G89.29 Other chronic pain
CPT/HCPCS: 36415; 80053; 85027; 86780; C9803; U0003

== ENCOUNTER 2024-09-08 16:22 | Inpatient (IN) | payer OTHER ==
[2024-09-08 16:55] VITALS: BMI 21.1
[2024-09-08] MEDS ORDERED: ACETAMINOPHEN 325 MG TABLET (FP) PO PRN (17:52)
[2024-09-08] MEDS ORDERED: P-EPHED 60MG/TRIPROLIDI 2.5MG TABLET PO PRN (17:52)
[2024-09-08] MEDS ORDERED: NALOXONE (NARCAN) HCL 4 MG/0.1 ML SPRAY NS PRN (17:52)
[2024-09-08] MEDS ORDERED: LOPERAMIDE HCL 2 MG CAPSULE PO PRN (17:52)
[2024-09-08] MEDS ORDERED: MAG HYDROX/AL HYDROX/SIMETH 30 ML UNIT-DOSE CUP PO PRN (17:52)
[2024-09-08] MEDS ORDERED: BENZONATATE 200 MG CAPSULE PO PRN (17:52)
[2024-09-08] MEDS ORDERED: NICOTINE POLACRILEX 2 MG LOZENGE BC PRN (17:52)
[2024-09-08] MEDS ORDERED: POLYETHYLENE GLYCOL (HEALTHYLAX) 3350 17 GM PACKET PO PRN (17:52)
[2024-09-08] MEDS ORDERED: guaiFENesin 600 MG TABLET.ER (FP) PO PRN (17:52)
[2024-09-08] MEDS ORDERED: NICOTINE POLACRILEX 2 MG GUM BUC PRN (17:52)
[2024-09-08] MEDS ORDERED: ONDANSETRON *ODT* 4 MG TABLET SL PRN (17:52)
[2024-09-08] MEDS ORDERED: MAGNESIUM HYDROX 2400MG/30ML ORAL SUSPENSION 30 ML CUP PO PRN (17:52)
[2024-09-08] MEDS ORDERED: BENZOCAINE/MENTHOL (CHLORASEPTIC ) LOZENGE MM PRN (17:52)
[2024-09-08] MEDS ORDERED: BISMUTH SUBSALICYLATE 524 MG/30 ML PO PRN (17:52)
[2024-09-08] MEDS: IBUPROFEN 600 MG TABLET (FP) PO PRN (20:04)
[2024-09-08] MEDS: METHOCARBAMOL 500 MG TABLET PO PRN (20:04)
[2024-09-08] MEDS: MELATONIN 5 MG TABLETS PO SCH (22:33)
[2024-09-08] MEDS: hydrOXYzine PAMOATE 25 MG CAPSULE (FP) PO PRN (22:34)
[2024-09-08] MEDS: DICYCLOMINE HCL 10 MG CAPSULE PO PRN (22:34)
[2024-09-08] MEDS: THIAMINE 100 MG TABLET PO SCH (22:34)
[2024-09-08] MEDS: levETIRAcetam 500 MG TABLET (FP) PO SCH (22:34)
[2024-09-09] MEDS ORDERED: diazePAM 5 MG TABLET PO PRN (08:53)
[2024-09-09] MEDS: methaDONE HCL 10 MG TABLET (FOR DETOX USE ONLY) PO ONE (09:20)
[2024-09-09] MEDS: PRENATAL VITAMINS W/ FOLIC ACID TABLET (FP) PO SCH (09:21)
[2024-09-09 10:37] LABS: HEMATOCRIT 32.2 % (40.1-51.0); RDW 13.2 % (12.1-15.9)
[2024-09-09] MEDS: diazePAM 5 MG TABLET PO SCH (10:37)
[2024-09-09 10:38] LABS: HEMOGLOBIN 10.3 g/dL (13.7-17.5); MEAN CELL VOLUME 92.3 fl (79.0-92.2); PLATELET COUNT 128 x10^3/uL (163-337)
[2024-09-09 10:48] LABS: CHLORIDE 102 mmol/L (98-107); POTASSIUM 3.8 mmol/L (3.5-5.1); SODIUM 134 mmol/L (136-145)
[2024-09-09 10:53] LABS: CALCIUM 9.2 mg/dL (8.5-10.1)
[2024-09-09 10:54] LABS: ALBUMIN 3.2 g/dl (3.4-5.0); ANION GAP 3 mmol/L (4-13); BLOOD UREA NITROGEN 30.1 mg/dL (7-18); CO2 28 mmol/L (21-32); GLUCOSE,RANDOM 114 mg/dL (74-106)
[2024-09-09 10:56] LABS: CREATININE 1.1 mg/dL (0.55-1.3); SGOT/AST 37 U/L (15-37); SGPT/ALT 45 U/L (13-61)
[2024-09-09 10:59] LABS: BILIRUBIN,TOTAL 0.9 mg/dL (0.2-1); TOT PROT 6.7 g/dl (6.4-8.2)
[2024-09-09 11:00] LABS: ALK PHOS 97 U/L (45-117)
[2024-09-09] MEDS: cloNIDine HCL 0.1 MG TABLET PO PRN (20:24)
[2024-09-09] MEDS: methaDONE HCL 10 MG TABLET (FOR DETOX USE ONLY) PO PRN (22:38)
[2024-09-10] MEDS: IBUPROFEN 400 MG TABLET (FP) PO PRN (09:43)
[2024-09-10] MEDS: methaDONE HCL 10 MG TABLET (FOR DETOX USE ONLY) PO ONE (09:44)
[2024-09-10 12:29] VITALS: BP 121/82; PULSE 67; RESP 18; TEMP 98
[2024-09-11] MEDS ORDERED: diazePAM 5 MG TABLET PO SCH (06:00)
[2024-09-12] MEDS ORDERED: diazePAM 5 MG TABLET PO SCH (06:00)
[2024-09-12] MEDS ORDERED: methaDONE HCL 10 MG TABLET (FOR DETOX USE ONLY) PO ONE (10:00)
[2024-09-13] MEDS ORDERED: diazePAM 5 MG TABLET PO ONE (06:00)
[2024-09-14] MEDS ORDERED: methaDONE HCL 10 MG TABLET (FOR DETOX USE ONLY) PO ONE (10:00)
== END 2024-09-10 15:40 | disposition left against medical advice (07) | DRG 770 ==
LOC: YASAS 16:22 → Y6N 18:29
PROVIDERS: ADMIT Family Medicine; ATTEND Family Medicine Addiction Medicine
PROC: HZ2ZZZZ Detoxification Services for Substance Abuse Treatment (ICD-10-PCS; principal; 2024-09-08)
DX: F11.23 Opioid dependence with withdrawal (principal); F10.230 Alcohol dependence with withdrawal, uncomplicated; F14.20 Cocaine dependence, uncomplicated; F13.10 Sedative, hypnotic or anxiolytic abuse, uncomplicated; F17.210 Nicotine dependence, cigarettes, uncomplicated; M25.552 Pain in left hip; Z99.89 Dependence on other enabling machines and devices
CPT/HCPCS: 36415; 80053; 80305; 80307; 85027; 86780; 93005; 93010